=== PATIENT | female | born 1950 | race Caucasian/White ===

== ENCOUNTER 2020-05-12 09:19 | Outpatient (RCR) | payer MEDICARE, OTHER | END 2020-06-09 16:13 | disposition home or self-care (01) | LOC: OPPGERO 09:19 | DX: F31.81 Bipolar II disorder (principal); F41.8 Other specified anxiety disorders; R45.851 Suicidal ideations; R41.3 Other amnesia; E66.01 Morbid (severe) obesity due to excess calories; E11.9 Type 2 diabetes mellitus without complications; I10 Essential (primary) hypertension; E78.5 Hyperlipidemia, unspecified; M51.36 Other intervertebral disc degeneration, lumbar region; I27.20 Pulmonary hypertension, unspecified; Z83.3 Family history of diabetes mellitus; E03.9 Hypothyroidism, unspecified; Z90.710 Acquired absence of both cervix and uterus; Z63.4 Disappearance and death of family member; Z90.49 Acquired absence of other specified parts of digestive tract; Z79.899 Other long term (current) drug therapy; Z82.49 Family history of ischemic heart disease and other diseases of the circulatory system; Z91.410 Personal history of adult physical and sexual abuse; Z79.01 Long term (current) use of anticoagulants; Z82.3 Family history of stroke; Z98.890 Other specified postprocedural states; Z98.84 Bariatric surgery status; Z87.828 Personal history of other (healed) physical injury and trauma; Z63.5 Disruption of family by separation and divorce ==

== ENCOUNTER 2020-06-10 12:16 | Outpatient (RCR) | payer MEDICARE, OTHER | END 2020-07-10 18:19 | disposition home or self-care (01) | LOC: OPPGERO 12:16 | DX: F31.81 Bipolar II disorder (principal); F41.8 Other specified anxiety disorders; E11.9 Type 2 diabetes mellitus without complications; I10 Essential (primary) hypertension; E78.5 Hyperlipidemia, unspecified; M51.36 Other intervertebral disc degeneration, lumbar region; E66.01 Morbid (severe) obesity due to excess calories; E03.9 Hypothyroidism, unspecified; M19.90 Unspecified osteoarthritis, unspecified site; I27.20 Pulmonary hypertension, unspecified; G43.909 Migraine, unspecified, not intractable, without status migrainosus; Z90.710 Acquired absence of both cervix and uterus; Z98.84 Bariatric surgery status; Z62.810 Personal history of physical and sexual abuse in childhood; Z98.890 Other specified postprocedural states; Z79.84 Long term (current) use of oral hypoglycemic drugs; Z63.5 Disruption of family by separation and divorce ==

== ENCOUNTER 2020-07-14 13:26 | Outpatient (RCR) | payer MEDICARE, OTHER | END 2020-08-08 12:31 | disposition home or self-care (01) | LOC: OPPGERO 13:26 | DX: F31.81 Bipolar II disorder (principal); F41.1 Generalized anxiety disorder; F43.10 Post-traumatic stress disorder, unspecified; F50.81 Binge eating disorder; Z91.5 Personal history of self-harm; Z90.710 Acquired absence of both cervix and uterus; Z90.49 Acquired absence of other specified parts of digestive tract; Z98.84 Bariatric surgery status; Z91.410 Personal history of adult physical and sexual abuse; Z63.4 Disappearance and death of family member ==

== ENCOUNTER 2020-08-11 09:07 | Outpatient (RCR) | payer MEDICARE, OTHER | END 2020-09-05 16:09 | disposition home or self-care (01) | LOC: OPPGERO 09:07 | DX: F31.81 Bipolar II disorder (principal); F41.1 Generalized anxiety disorder; F43.10 Post-traumatic stress disorder, unspecified; F50.81 Binge eating disorder; Z91.5 Personal history of self-harm; Z90.710 Acquired absence of both cervix and uterus; Z90.49 Acquired absence of other specified parts of digestive tract; Z98.84 Bariatric surgery status; Z98.890 Other specified postprocedural states ==

== ENCOUNTER 2020-09-08 09:25 | Outpatient (RCR) | payer MEDICARE, OTHER | END 2020-10-08 15:02 | LOC: OPPGERO 09:25 | DX: F41.8 Other specified anxiety disorders (principal); F31.81 Bipolar II disorder; E11.9 Type 2 diabetes mellitus without complications; I10 Essential (primary) hypertension; M51.36 Other intervertebral disc degeneration, lumbar region; E66.01 Morbid (severe) obesity due to excess calories; I27.20 Pulmonary hypertension, unspecified; E03.9 Hypothyroidism, unspecified; G43.909 Migraine, unspecified, not intractable, without status migrainosus; M19.90 Unspecified osteoarthritis, unspecified site; Z90.49 Acquired absence of other specified parts of digestive tract; Z90.710 Acquired absence of both cervix and uterus; Z98.890 Other specified postprocedural states; Z98.84 Bariatric surgery status; Z79.84 Long term (current) use of oral hypoglycemic drugs ==

== ENCOUNTER 2020-10-09 07:56 | Outpatient (RCR) | payer MEDICARE, OTHER | END 2020-11-07 15:47 | disposition home or self-care (01) | LOC: OPPGERO 07:56 | DX: F41.8 Other specified anxiety disorders (principal); F31.81 Bipolar II disorder; E11.9 Type 2 diabetes mellitus without complications; I10 Essential (primary) hypertension; E78.5 Hyperlipidemia, unspecified; G43.909 Migraine, unspecified, not intractable, without status migrainosus; E03.9 Hypothyroidism, unspecified; M51.36 Other intervertebral disc degeneration, lumbar region; M19.90 Unspecified osteoarthritis, unspecified site; E66.01 Morbid (severe) obesity due to excess calories; G47.30 Sleep apnea, unspecified; I27.20 Pulmonary hypertension, unspecified; Z90.49 Acquired absence of other specified parts of digestive tract; Z98.890 Other specified postprocedural states; Z90.710 Acquired absence of both cervix and uterus; Z79.84 Long term (current) use of oral hypoglycemic drugs; Z79.01 Long term (current) use of anticoagulants; Z63.5 Disruption of family by separation and divorce ==

== ENCOUNTER 2020-11-10 08:38 | Outpatient (RCR) | payer MEDICARE, OTHER | END 2020-12-05 15:55 | disposition home or self-care (01) | LOC: OPPGERO 08:38 | DX: F31.81 Bipolar II disorder (principal); Z91.5 Personal history of self-harm; E11.9 Type 2 diabetes mellitus without complications; I10 Essential (primary) hypertension; E78.5 Hyperlipidemia, unspecified; M51.36 Other intervertebral disc degeneration, lumbar region; E66.01 Morbid (severe) obesity due to excess calories; E03.9 Hypothyroidism, unspecified; I26.99 Other pulmonary embolism without acute cor pulmonale; M19.90 Unspecified osteoarthritis, unspecified site; C76.0 Malignant neoplasm of head, face and neck; C64.9 Malignant neoplasm of unspecified kidney, except renal pelvis; Z90.49 Acquired absence of other specified parts of digestive tract; Z98.84 Bariatric surgery status; Z63.4 Disappearance and death of family member ==

== ENCOUNTER 2020-12-09 09:36 | Outpatient (RCR) | payer MEDICARE, OTHER | END 2021-01-07 15:23 | disposition home or self-care (01) | LOC: OPPGERO 09:36 | DX: F41.8 Other specified anxiety disorders (principal); F31.81 Bipolar II disorder; E11.9 Type 2 diabetes mellitus without complications; I10 Essential (primary) hypertension; E78.5 Hyperlipidemia, unspecified; M51.36 Other intervertebral disc degeneration, lumbar region; E66.01 Morbid (severe) obesity due to excess calories; E03.9 Hypothyroidism, unspecified; M19.90 Unspecified osteoarthritis, unspecified site; G43.909 Migraine, unspecified, not intractable, without status migrainosus; Z90.710 Acquired absence of both cervix and uterus; Z90.49 Acquired absence of other specified parts of digestive tract; Z63.5 Disruption of family by separation and divorce ==

== ENCOUNTER 2021-01-08 08:38 | Outpatient (RCR) | payer MEDICARE, OTHER | END 2021-02-06 22:25 | disposition home or self-care (01) | LOC: OPPGERO 08:38 | DX: F41.8 Other specified anxiety disorders (principal); F31.81 Bipolar II disorder; R45.851 Suicidal ideations; E11.9 Type 2 diabetes mellitus without complications; I10 Essential (primary) hypertension; E78.5 Hyperlipidemia, unspecified; E66.01 Morbid (severe) obesity due to excess calories; I27.20 Pulmonary hypertension, unspecified; E03.9 Hypothyroidism, unspecified; Z90.710 Acquired absence of both cervix and uterus; Z90.49 Acquired absence of other specified parts of digestive tract; Z98.84 Bariatric surgery status; C44.319 Basal cell carcinoma of skin of other parts of face; C44.91 Basal cell carcinoma of skin, unspecified ==

== ENCOUNTER 2021-07-21 08:38 | Outpatient (RCR) | payer MEDICARE, OTHER | END 2021-08-10 11:59 | LOC: OPPGERO 08:38 | DX: F31.9 Bipolar disorder, unspecified (principal); E11.9 Type 2 diabetes mellitus without complications; I10 Essential (primary) hypertension; E78.5 Hyperlipidemia, unspecified; M51.36 Other intervertebral disc degeneration, lumbar region; E66.01 Morbid (severe) obesity due to excess calories; I27.20 Pulmonary hypertension, unspecified; E03.9 Hypothyroidism, unspecified; C76.0 Malignant neoplasm of head, face and neck; C64.1 Malignant neoplasm of right kidney, except renal pelvis; Z90.5 Acquired absence of kidney; M19.90 Unspecified osteoarthritis, unspecified site; R91.8 Other nonspecific abnormal finding of lung field; Z90.49 Acquired absence of other specified parts of digestive tract; Z95.818 Presence of other cardiac implants and grafts; Z90.710 Acquired absence of both cervix and uterus; Z98.84 Bariatric surgery status; Z98.890 Other specified postprocedural states; Z63.4 Disappearance and death of family member; Z79.899 Other long term (current) drug therapy; Z91.51 Personal history of suicidal behavior; R45.851 Suicidal ideations ==

== ENCOUNTER 2021-08-11 09:46 | Outpatient (RCR) | payer MEDICARE, OTHER | END 2021-09-07 15:28 | disposition home or self-care (01) | LOC: OPPGERO 09:46 | DX: F31.9 Bipolar disorder, unspecified (principal); E11.9 Type 2 diabetes mellitus without complications; I10 Essential (primary) hypertension; E78.5 Hyperlipidemia, unspecified; M51.36 Other intervertebral disc degeneration, lumbar region; E66.01 Morbid (severe) obesity due to excess calories; I27.20 Pulmonary hypertension, unspecified; E03.9 Hypothyroidism, unspecified; C76.0 Malignant neoplasm of head, face and neck; C64.1 Malignant neoplasm of right kidney, except renal pelvis; Z90.5 Acquired absence of kidney; M19.90 Unspecified osteoarthritis, unspecified site; R91.8 Other nonspecific abnormal finding of lung field; G47.30 Sleep apnea, unspecified; Z98.84 Bariatric surgery status; Z90.49 Acquired absence of other specified parts of digestive tract; Z90.710 Acquired absence of both cervix and uterus; Z98.890 Other specified postprocedural states; Z79.899 Other long term (current) drug therapy; Z63.4 Disappearance and death of family member ==

== ENCOUNTER 2021-09-08 07:55 | Outpatient (RCR) | payer MEDICARE, OTHER | END 2021-10-08 19:34 | disposition home or self-care (01) | LOC: OPPGERO 07:55 | DX: F32.A Depression, unspecified (principal); I10 Essential (primary) hypertension; E11.9 Type 2 diabetes mellitus without complications; E78.5 Hyperlipidemia, unspecified; M51.36 Other intervertebral disc degeneration, lumbar region; E66.01 Morbid (severe) obesity due to excess calories; E03.9 Hypothyroidism, unspecified; C64.1 Malignant neoplasm of right kidney, except renal pelvis; Z90.5 Acquired absence of kidney; C76.0 Malignant neoplasm of head, face and neck; M19.90 Unspecified osteoarthritis, unspecified site; R91.8 Other nonspecific abnormal finding of lung field; G47.30 Sleep apnea, unspecified; Z95.818 Presence of other cardiac implants and grafts; Z90.710 Acquired absence of both cervix and uterus; Z90.49 Acquired absence of other specified parts of digestive tract; Z98.84 Bariatric surgery status; Z63.4 Disappearance and death of family member ==

== ENCOUNTER 2021-10-12 11:36 | Outpatient (RCR) | payer MEDICARE, OTHER | END 2021-11-06 16:08 | disposition home or self-care (01) | LOC: OPPGERO 11:36 | DX: F31.4 Bipolar disorder, current episode depressed, severe, without psychotic features (principal); E11.9 Type 2 diabetes mellitus without complications; I10 Essential (primary) hypertension; E78.5 Hyperlipidemia, unspecified; E03.9 Hypothyroidism, unspecified; E66.01 Morbid (severe) obesity due to excess calories; Z63.5 Disruption of family by separation and divorce ==

== ENCOUNTER 2021-11-09 09:55 | Outpatient (RCR) | payer MEDICARE, OTHER | END 2021-12-08 20:54 | disposition home or self-care (01) | LOC: OPPGERO 09:55 | DX: F31.4 Bipolar disorder, current episode depressed, severe, without psychotic features (principal); E11.9 Type 2 diabetes mellitus without complications; I10 Essential (primary) hypertension; E78.5 Hyperlipidemia, unspecified; E66.01 Morbid (severe) obesity due to excess calories; I26.99 Other pulmonary embolism without acute cor pulmonale; E03.9 Hypothyroidism, unspecified; Z90.5 Acquired absence of kidney; Z90.710 Acquired absence of both cervix and uterus; Z95.818 Presence of other cardiac implants and grafts; Z90.49 Acquired absence of other specified parts of digestive tract; Z98.84 Bariatric surgery status; Z79.899 Other long term (current) drug therapy; Z63.4 Disappearance and death of family member ==

== ENCOUNTER 2021-12-09 10:24 | Outpatient (RCR) | payer MEDICARE, OTHER | END 2022-01-07 07:26 | disposition still patient (30) | LOC: OPPGERO 10:24 | DX: F31.9 Bipolar disorder, unspecified (principal); Z91.51 Personal history of suicidal behavior; E11.9 Type 2 diabetes mellitus without complications; I10 Essential (primary) hypertension; E78.5 Hyperlipidemia, unspecified; Z90.710 Acquired absence of both cervix and uterus; Z98.84 Bariatric surgery status; Z90.5 Acquired absence of kidney; Z98.890 Other specified postprocedural states ==